=== PATIENT | male | born 1970 | race Caucasian/White ===

== ENCOUNTER 2022-03-08 08:20 | Emergency (ER) | payer OTHER, MEDICAID, SELFPAY ==
[2022-03-08 08:51] VITALS: BP 136/78; PULSE 64; RESP 15; TEMP 36.3; O2SAT 98; BMI 31.0
[2022-03-08] MEDS: PROPARACAINE 0.5% OPHTH SOL 1 DROPS EYE-BOTH (11:30)
[2022-03-08] MEDS: FLUORESCEIN 1 MG STRIP EYE-BOTH (11:30)
== END 2022-03-08 12:21 | disposition left against medical advice (07) ==
PROVIDERS: Emergency Provider Registered Nurse
DX: S05.91XA Unspecified injury of right eye and orbit, initial encounter (principal)
CPT/HCPCS: 99282